=== PATIENT | female | born 1960 | race Caucasian/White ===

== ENCOUNTER 2022-07-01 20:45 | Inpatient (IN) | payer OTHER ==
[~2022-07-01] VITALS: Ht 154.9 cm; Wt 48.3 kg
[2022-07-01 23:30] VITALS: BP 100/74
[2022-07-02] VITALS (70 sets, daily range): BP systolic 87–132; BP diastolic 53–87
[2022-07-02 00:45] LABS: Bicarbonate Venous 20.1 mmol/L (24.0-30.0); pH Blood Venous 7.26 (7.34-7.37)
--- NOTE | 2022-07-02 01:40 | NUR ---
NEW ADMIT TO ICU 3: DIRECT ADMIT FROM [facility] ARRIVED TO THE UNIT AT 2304. PT ADMITTED WITH COPD EXACERBATION AND ARRIVED INTUBATED AND SEDATED WITH VENT SETTINGS AC/VC 20/360/5/65% AND PROPOFOL GTT @ 35 MCG. PT IS RESPONSIVE TO VERBAL STIMULI AND OPENING EYES AND NODDING HEAD YES/NO TO SIMPLE QUESTIONS. LUNG SOUNDS ARE CLEAR WITH SPO2 96< AND RR 18-20. SR ON MONITOR WITH HR 80'S AND SBP 90'S, MAP 65<. PT ABD SOFT, NON-TENDER AND HYPO ACTIVE BOWEL SOUNDS PRESENT; OGT PLACED AFTER ARRIVAL AND HOOKED UP TO LIS. KING IN PLACE ON ARRIVAL AND REPLACED WITH A 16 FR TEMP KING; STILL WAITING TO COLLECT URINE FOR UA R/T OL[place]. PT SKIN COOL TO BLE AND KNEES MOTTLED, PPP X 4, CAP REFILL < 3 SECONDS. PT RINGS REMOVED AND PLACED IN CUP WITH PT LABEL; LOCKED IN MED BOX. BED LOWERED, WILL CONTINUE TO MONITOR.
[2022-07-02 03:07] LABS: Source, Urine Foley catheter
[2022-07-02 03:11] LABS: Bilirubin, Urine Neg (Neg); Blood, Urine 2+ (Neg); Glucose Qualitative, Urine Neg (Neg); Ketones, Urine 1+ (Neg); Leukocyte Esterase, Urine Neg (Neg); Nitrite, Urine Neg (Neg); Protein, Urine 2+ (Neg); Specific Gravity, Urine 1.025 (1.003-1.022); Urobilinogen, Urine NORM (Normal)
[2022-07-02 03:23] LABS: Appearance, Urine Cloudy (Clear); Bacteria Few /hpf; Color, Urine Yellow (P-Yellow); Red Blood Cells, Urine 0-2 /hpf (0-2); Squamous Epithelial Cells Mod /hpf (Few); White Blood Cells, Urine Not Seen /hpf (0-5)
[2022-07-02 03:24] LABS: Amorphous Heavy (0-Heavy)
[2022-07-02 03:36] LABS: BASOPHILS ABSOLUTE AUTO 0.01 K/mm3 (0.00-0.23); BASOPHILS PERCENT AUTO 0 % (0-2); EOSINOPHILS ABSOLUTE AUTO 0.01 K/mm3 (0.00-0.68); EOSINOPHILS PERCENT AUTO 0 % (0-6); Hematocrit 37.2 % (33.0-51.0); IMMATURE GRAN ABSOLUTE AUTO 0.04 K/mm3 (0.00-0.10); IMMATURE GRAN PERCENT AUTO 0 % (0-1); LYMPHOCYTES ABSOLUTE AUTO 0.39 K/mm3 (0.84-5.20); LYMPHOCYTES PERCENT AUTO 3 % (21-46); MONOCYTES ABSOLUTE AUTO 0.29 K/mm3 (0.16-1.47); MONOCYTES PERCENT AUTO 2 % (4-13); Mean Corpuscular HGB 33.8 pg (26.0-34.0); Mean Corpuscular HGB Conc 34.9 g/dL (31.5-36.5); Mean Corpuscular Volume 97 fL (80-100); Mean Platelet Volume 10.2 fL (9.1-12.4); NEUTROPHILS ABSOLUTE AUTO 11.58 K/mm3 (1.96-9.15); NEUTROPHILS PERCENT AUTO 94 % (41-73); Platelet Count 234 K/mm3 (150-400); RDW Standard Deviation 45.8 fL (35.1-46.3); Red Blood Cell Count 3.85 M/mm3 (3.80-5.20); White Blood Cell Count 12.32 K/mm3 (4.00-11.30)
[2022-07-02 04:20] LABS: Albumin, Blood 3.3 g/dL (3.4-5.0); Albumin/Globulin Ratio 1.2 (0.8-1.8); Bilirubin, Total 0.5 mg/dL (0.1-1.0); Bun/Creatinine Ratio 16.6 (12.0-20.0); Calcium, Blood 8.2 mg/dL (8.5-10.1); Creatinine, Blood 0.6 mg/dL (0.40-1.00); Globulin, Blood 2.7 g/dL (2.2-4.0); Potassium, Blood 3.7 mmol/L (3.5-5.5)
[2022-07-02 05:49] LABS: PO2 Arterial 216 mmHg (80-100); pH Blood Arterial 7.37 (7.35-7.45)
--- NOTE | 2022-07-02 06:12 | NUR ---
SHIFT SUMMARY: NO ACUTE CHANGES THIS SHIFT. PT REMAINS INTUBATED AND SEDATED WITH VENT SETTINGS AC/VC 20/360/5/65% AND PROPOFOL GTT @ 35 MCG. PT STILL RESPONSIVE TO VERBAL STIMULI AND OPENING EYES AND FOLLOWING COMMANDS. PT HAS VERY LOW URINE OUTPUT THIS SHIFT WITH URINE OUTPUT AT 85 MLS. VSS THROUGHOUT THE SHIFT. BED LOWERED, WILL CONTINUE TO MONITOR UNTIL ONCOMING RN ARRIVES.
--- NOTE | 2022-07-02 12:29 | NUR ---
REASSESSMENT PT REMAINS INTUBATED AND LIGHTLY SEDATED. SHE WAKES TO VOICES, IS CALM AND ANSWERS YES/NO QUESTIONS APPROPRIATELY. SHE WAS SHAKING AT HER NOON TURN AND SHE SAID SHE WAS FEELING A LITTLE ANXIOUS. PRN FENTANYL GIVEN AND WILL ASK MD ABOUT SOMETHING FOR ANXIETY. PROPOFOL INCREASED A LITTLE WELL. LUNG SOUNDS ON L SIDE HAD FAINT INSPIRATORY WHEEZE, R SIDE CLEAR. SCANT SPUTUM FROM ETT. SR, BP STABLE. 1L BOLUS GIVEN THIS AM PER DR. PENG FOR LOW URINE OUTPUT AND URINE PRODUCTION OVER THE 2 HOURS FOLLOWING BOLUS WAS IMPROVED, SEE I/O. PT'S SO AND SON WERE UPDATED BY TELEPHONE BY DEVIN RAMOS RN.
--- NOTE | 2022-07-02 16:59 | NUR ---
SHIFT SUMMARY PT REMAINS INTUBATED. SEDATION INCREASED A LITTLE THROUGHOUT THE AFTERNOON PT HAD SOME ANXIETY. SHE WAS ABLE TO WRITE AND SAY THAT SHE FELT "PANICKY" AND THAT IT WAS "ENVELOPING" HER. DR. PENG ORDERED SOME ATIVAN AND PT WAS ABLE TO REST AFTER THAT. LUNGS ARE CLEAR THIS EVENING. SR, BP STABLE. URINE OUTPUT IMPROVED OVER THE SHIFT, SEE I/O. PT'S SO AND SON UPDATED SEVERAL TIMES THROUGHOUT THE SHIFT.
[2022-07-03] VITALS (32 sets, daily range): BP systolic 106–158; BP diastolic 56–94
[2022-07-03 03:59] LABS: BASOPHILS ABSOLUTE AUTO 0.02 K/mm3 (0.00-0.23); BASOPHILS PERCENT AUTO 0 % (0-2); EOSINOPHILS PERCENT AUTO 0 % (0-6); Hematocrit 35.5 % (33.0-51.0); Hemoglobin 12.8 g/dL (11.5-16.0); IMMATURE GRAN ABSOLUTE AUTO 0.05 K/mm3 (0.00-0.10); IMMATURE GRAN PERCENT AUTO 0 % (0-1); LYMPHOCYTES ABSOLUTE AUTO 0.45 K/mm3 (0.84-5.20); LYMPHOCYTES PERCENT AUTO 2 % (21-46); MONOCYTES ABSOLUTE AUTO 0.64 K/mm3 (0.16-1.47); MONOCYTES PERCENT AUTO 4 % (4-13); Mean Corpuscular HGB Conc 36.1 g/dL (31.5-36.5); Mean Corpuscular Volume 94 fL (80-100); Mean Platelet Volume 10.3 fL (9.1-12.4); NEUTROPHILS ABSOLUTE AUTO 17.35 K/mm3 (1.96-9.15); NEUTROPHILS PERCENT AUTO 94 % (41-73); Platelet Count 255 K/mm3 (150-400); RDW Coefficient Variation 12.9 % (11.7-14.2); RDW Standard Deviation 44.2 fL (35.1-46.3); Red Blood Cell Count 3.77 M/mm3 (3.80-5.20); White Blood Cell Count 18.51 K/mm3 (4.00-11.30)
[2022-07-03 04:34] LABS: PCO2 Arterial 36.6 mmHg (35-45); pH Blood Arterial 7.42 (7.35-7.45)
--- NOTE | 2022-07-03 06:32 | NUR ---
SHIFT SUMMARY: PT REMAINS INTUBATED; AT 0330 PT SWITCHED OVER TO SPONT. FOR AM BREATHING TRIAL AND HAS BEEN DOING GOOD WITH SETTINGS 8/5 AND FIO2 30%. PT HAS NO SIGNS OF DISTRESS/SOB AND HAS BEEN MAINTAINING SPO2 98< AND TV 200-300. SR-ST ON MONITOR , HR 100'S AND SBP 120'S. PT A&O X 4; ABLE TO COMMUNICATE WITH WRITTEN COMMUNICATION AND HAS BEEN ANXIOUS THROUGHOUT THE NIGHT. PT MEDICATED WITH PRN ATIVAN. AFTER THE START OF THE BREATHING TRIAL THE PT WAS VERY ANXIOUS AND IMPATIENT TO GET ETT OUT. PT EXPRESSING FRUSTRATION AND STATES " I CAN'T DEAL WITH THIS ANY MORE." PT EDUCATED ON TIMELINE FOR EXTUBATION AND GIVEN AN ADDITIONAL DOSE OF ATIVAN TO HELP CALM HER DOWN AND ALLOW HER TO TOLERATE UNTIL POSSIBLE EXTUBATION LATER THIS MORNING. PT CURRENTLY OUT OF RESTRAINTS BECAUSE THE PT DEMONSTRATING UNDERSTANDING OF LIMITATION AND IS NOT PULLING AT LINES/CORDS; PT EDUCATED ABOUT IMPORTANCE OF NOT PUTTING AT ETT. PT HAS OGT IN PLACE THAT IS ON LIS WITH BILE OUTPUT. BOWEL SOUNDS ARE HYPOACTIVE, NO BM THIS SHIFT. TEMP KING IN PLACE THAT IS DRAINING TO GRAVITY; URINE YELLOW, CLEAR. PPP X 4, SKIN INTACT AND WARM. PT USING CALL LIGHT APPROPRIATELY AND COMMUNICATING NEEDS APPROPRIATELY. PROPOFOL GTT ON SB SINCE 229. [employer] BED BATH AND COMPLETE LINEN CHANGE THIS SHIFT. BED LOWERED, CALL LIGHT IN REACH, WILL CONTINUE TO MONITOR UNTIL ONCOMING RN ARRIVES.
--- NOTE | 2022-07-03 07:15 | NUR ---
ASSUMPTION OF CARE PT IS INTUBATED AND ON SPONT 10/28/24%. RR 18-25, TV 240S-300S. SHE IS RECEIVING NS 75ML/HR. PROPOFOL IS OFF. KING PATENT AND DRAINING TO GRAVITY. SEE SHIFT ASSESSMENT.
[2022-07-03 07:37] LABS: Bun/Creatinine Ratio 17.1 (12.0-20.0); Creatinine, Blood 0.59 mg/dL (0.40-1.00); Potassium, Blood 3.4 mmol/L (3.5-5.5)
--- NOTE | 2022-07-03 08:53 | NUR ---
UPDATE PT AWAKE AND USING CALL LIGHT, COMMUNICATED BY NODDING/SHAKING HEAD OR WRITING. PT WRITES THAT SHE WANTS THE ETT TAKEN OUT. EXPLAINED PROCESS FOR REMOVAL AND PT AGREEABLE. SHE IS NOT IN RESTRAINTS. EXPLAINED RISKS OF SELF EXTUBATION AND PT NODS IN AGREEMENT THAT SHE UNDERSTANDS. PT REPORTS FEELING ANXIOUS, MEDICATED PER EMAR. VSS AT THIS TIME. SHE REMAINS ON SPONT VENT SETTING AND TOLERATING WELL. BED IN LOW POSITION AND CALL LIGHT WITHIN REACH.
--- NOTE | 2022-07-03 10:11 | NUR ---
EXTUBATION PT EXTUBATED AT 0922. PT TOLERATED VERY WELL. SHE IS ON RA WITH SPO2 >95%. RR 15-28. PT DENIES SOB. TEMP KING REMOVED AND PT ASSISTED TO TOILET TO VOID WITH MINIMAL ASSISTANCE. FAMILY UPDATED ON EXTUBATION. BED IN LOW POSITION AND CALL LIGHT WITHIN REACH.
--- NOTE | 2022-07-03 13:50 | NUR ---
UPDATE PT REMAINS A&OX4. SHE PARTICIPATES IN CARE AND CONVERSATION. PT ANXIOUS AT TIMES, MEDICATED PER EMAR. SHE HAS BEEN ON RA SINCE EXTUBATION WITH SPO2 >93%. PT TACHYPNEIC AT TIMES BUT DENIES SOB. PT TOLERATING FLUIDS, PROVIDED LUNCH TRAY. VSS AND CALL LIGHT WITHIN REACH.
--- NOTE | 2022-07-03 17:39 | NUR ---
TRANSFER TO MEDICAL FLOOR PT HAS REPORTED THAT SHE DOES NOT REMEMBER HOW SHE GOT TO [place]. PT REORIENTED A FEW TIMES AND EXPLAINED PROCESS FROM [place] TO HERE. PT VERBALIZES UNDERSTANDING. SPOUSE AND SON UPDATED ON PT AND TRANSFER TO MEDICAL FLOOR. PT'S BELONGINGS INCLUDING RINGS IN LABELED CUP SENT WITH PT. PT TRANSFERRED VIA WHEELCHAIR.
[2022-07-04 04:49] VITALS: BP 148/102
--- NOTE | 2022-07-04 05:19 | NUR ---
Shift Summary Pt on RA and breathing well, SPO2>95%. Pt states she believes Prednisone is causing her issues including migranes, rcvd dose when I explained the importance of tapering. Medicated per emar for headache. Slept well t/o most of the night. Hypertensive this AM. AOx4, no acute events, pleasant and cooperative.
[2022-07-04 05:34] LABS: Base Excess Venous 0.8 mmol/L; Bicarbonate Venous 25.5 mmol/L (24.0-30.0); PCO2 Venous 35.3 mmHg (38-42); pH Blood Venous 7.45 (7.34-7.37)
[2022-07-04 05:56] LABS: BASOPHILS ABSOLUTE AUTO 0.02 K/mm3 (0.00-0.23); BASOPHILS PERCENT AUTO 0 % (0-2); EOSINOPHILS PERCENT AUTO 0 % (0-6); Hematocrit 41.2 % (33.0-51.0); IMMATURE GRAN ABSOLUTE AUTO 0.07 K/mm3 (0.00-0.10); IMMATURE GRAN PERCENT AUTO 0 % (0-1); LYMPHOCYTES PERCENT AUTO 5 % (21-46); MONOCYTES ABSOLUTE AUTO 0.82 K/mm3 (0.16-1.47); MONOCYTES PERCENT AUTO 4 % (4-13); Mean Corpuscular HGB 34.1 pg (26.0-34.0); Mean Corpuscular HGB Conc 36.4 g/dL (31.5-36.5); Mean Corpuscular Volume 94 fL (80-100); Mean Platelet Volume 10.5 fL (9.1-12.4); NEUTROPHILS ABSOLUTE AUTO 16.58 K/mm3 (1.96-9.15); NEUTROPHILS PERCENT AUTO 90 % (41-73); Platelet Count 273 K/mm3 (150-400); RDW Coefficient Variation 13.2 % (11.7-14.2); RDW Standard Deviation 45.2 fL (35.1-46.3); White Blood Cell Count 18.49 K/mm3 (4.00-11.30)
[2022-07-04 06:41] VITALS: BP 164/94
[2022-07-04 06:59] LABS: Bun/Creatinine Ratio 24.4 (12.0-20.0); Calcium, Blood 8.8 mg/dL (8.5-10.1); Creatinine, Blood 0.57 mg/dL (0.40-1.00); Phosphorus, Blood 2.3 mg/dL (2.5-4.9); Potassium, Blood 4.2 mmol/L (3.5-5.5); Thyroid Stimulating Hormone 0.933 uIU/mL (0.360-4.800)
[2022-07-04 07:14] VITALS: BP 165/92
[2022-07-04 15:47] VITALS: BP 148/84
--- NOTE | 2022-07-04 16:29 | NUR ---
SHIFT SUMMARY NO ACUTE CHANGES THIS SHIFT. PATIENT EATING, DRINKING, & VOIDING WELL. PATIENT REPORTED HEADACHE T/O DAY, IBUPROFEN ORDERS ADDED, PATIENT REPORTS RELIEF FROM THE IBUPROFEN. DENIES CP/PRESSURE/SOB. DENIES DIFFICULTY BREATHING, LUNGS CLEAR T/O SHIFT. IV ACCESS LOST THIS AM, DR THOMSON GAVE ORDERS FOR NO IV ACCESS NEEDED AT THIS TIME. PATIENT CALLS APPROPRIATELY, WILL REPORT TO ONCOMING RN AT 1900.
[2022-07-04 19:14] VITALS: BP 144/85
--- NOTE | 2022-07-05 05:17 | NUR ---
SHIFT SUMMARY A/OX4, FLAT AFFECT. DENIES CHEST PAIN/PRESSURE. SPO2 >92% ON RA. C/O [place], MEDICATED PER EMAR. VSS, NO ACUTE CHANGES AT THIS TIME. BED IN LOWEST POSITION WITH CALL LIGHT IN REACH. WILL CONTINUE TO MONITOR AND REPORT TO ONCOMING RN.
[2022-07-05 05:20] VITALS: BP 140/90
[2022-07-05 07:25] VITALS: BP 149/95
[2022-07-05] MEDS ORDERED: IBUP400 PO (12:53)
[2022-07-05] MEDS ORDERED: ALBU2.5V5 INH (12:53)
[2022-07-05] MEDS ORDERED: IPRAT-ALBUT 0.5-3 ML INH (12:54)
[2022-07-05] MEDS ORDERED: DULERA 100 MCG/13 GM INH (12:54)
[2022-07-05] MEDS ORDERED: PRED20 PO (12:56)
--- NOTE | 2022-07-05 14:16 | NUR ---
Patient ready for discharge, faxed meds to pharmacy. Reviewed discharge education with patient patient verbalized understanding. left medical floor at 1400
== END 2022-07-05 14:49 | disposition home or self-care (01) | DRG 208 ==
LOC: ICUW 20:45 → ICUE 23:20 → MEDS 23:20 → ICUE 07-03 14:16 → MEDS 07-03 17:31
PROVIDERS: Internal Medicine; Internal Medicine Critical Care Medicine; ADMIT Internal Medicine
PROC: 5A1945Z Respiratory Ventilation, 24-96 Consecutive Hours (ICD-10-PCS; principal; 2022-07-01)
PROC: 0BH17EZ Insertion of Endotracheal Airway into Trachea, Via Natural or Artificial Opening (ICD-10-PCS; 2022-07-01)
PROC: 4A133R1 Monitoring of Arterial Saturation, Peripheral, Percutaneous Approach (ICD-10-PCS; 2022-07-02)
DX: J96.01 Acute respiratory failure with hypoxia (principal); J44.1 Chronic obstructive pulmonary disease with (acute) exacerbation; E44.0 Moderate protein-calorie malnutrition; R64 Cachexia; J96.02 Acute respiratory failure with hypercapnia; I10 Essential (primary) hypertension; R73.9 Hyperglycemia, unspecified; R34 Anuria and oliguria; Z87.891 Personal history of nicotine dependence; Z98.890 Other specified postprocedural states; Z88.5 Allergy status to narcotic agent; Z78.1 Physical restraint status
CPT/HCPCS: 36415; 36600; 51702; 71045; 80048; 80053; 81001; 82803; 82947; 83735; 83880; 84100; 84443; 85025; 94002; 94003; 94640; 94664; 94760; 94762; A9270; C9113; J0456; J1650; J2060; J2704; J2920; J2930; J3010; J7030; J7040; J7050; J7512